=== PATIENT | female | born 1985 | race Caucasian/White ===

== ENCOUNTER 2022-02-15 02:42 | Outpatient (CLI) | payer MEDICAID, SELFPAY ==
--- NOTE | 2022-02-15 14:00 | NS.NUTBLAN_ITS ---
Sylwia and her aunt attend nutritional counseling for IBS with diarrhea and constipation. 5'10 257 lbs BMI 36 Sylwia reports that she has had stomach problems since she was 11 years old. Her aunt reports that family has a hx of PCOS, Ulcerative Colitis/Crohns disease and Celiac disease. She gets frequent yeast infections and most recent CT indicated backed up stool that cleared up with mirilax /benefiber use. Sylwia reports having an ovarian cyst that was removed surgically a couple years ago. She states the pain she is having now is similar to when she had a cyst. Recent ER visit 2 days ago found only backed up stool in colon on scans, labs mostly wnl- however, elevated CRP and liver enzymes noted. Sylwia reports having milk leak out of her breasts since using Depo shot. Sylwia reports diarrhea (explosive and watery, no blood visable) after meals and in the last month can only eat once a day- typically dinner. Her portions are very small. She drinks diet gatorade or water to stay hydrated. Continues to gain weight despite very poor intake. Has not had constipation in last 2 weeks. Session today focused on getting Sylwia her needed macro and micro nutrients for optimal GI function. Suspect poor intake and IBS symptoms have reduced nutrient intake that may be contributing to poor digestions. ALso, educated Sylwia how to follow a gluten free diet to see if symptoms improve. Goal is for Sylwia to consume a minimum of 1000 kcal, 60 g protein, 45 g fat. She will use jordan on her phone to log her meals. Also, encouraged her to take a chewable MVI (flintstones with iron), 2000 IU Vitamin D, 800 mg Magnesium oxide. Recommend she continue with benefiber but d/c mirilax at this time as she has been having 4-6 loose stools daily for last 7 days. Plan: Recommend referral to GI for work up- ? colonoscopy At next blood draw to include Vit D, ferritin, A1C, insulin, Celiac panel follow up 02/20/22 at 1 pm.
== END 2022-02-15 02:43 | disposition home or self-care (01) ==
LOC: DS 02:42
PROVIDERS: Visit Provider Dietitian, Registered
DX: K58.2 Mixed irritable bowel syndrome (principal); R63.5 Abnormal weight gain; Z71.3 Dietary counseling and surveillance
CPT/HCPCS: 97802